=== PATIENT | female | born 1955 | race Caucasian/White ===

== ENCOUNTER 2025-08-17 10:17 | Emergency (ER) | payer MEDICARE, MEDICAID ==
[~2025-08-17] VITALS: Ht 162.6 cm; Wt 75.0 kg
[2025-08-17 10:25] VITALS: O2SAT 99
[2025-08-17] MEDS: ACETAMINOPHEN 500MG TABLET PO ONE (12:29)
[2025-08-17] MEDS: LIDOCAINE HCL/EPINEPHRINE 1%-EPI 1:100,000 20ML VIAL INFIL ONE (12:29)
[2025-08-17] MEDS: TETANUS, DIPHTHERIA, PERTUSSIS VAC/PF 0.5ML (>10YR OLD) IM ONE (12:30)
[2025-08-17] MEDS: BACITRACIN ZINC OINT UDPKT TOP ONE (13:28)
[2025-08-17 13:32] VITALS: BP 150/77; PULSE 90; RESP 16; TEMP 36.7; O2SAT 99
== END 2025-08-17 13:31 | disposition home or self-care (01) ==
LOC: EDSEX 10:17 → ER 10:17
DX: S01.01XA Laceration without foreign body of scalp, initial encounter (principal); E11.9 Type 2 diabetes mellitus without complications; I10 Essential (primary) hypertension; Z79.899 Other long term (current) drug therapy; W01.10XA Fall on same level from slipping, tripping and stumbling with subsequent striking against unspecified object, initial encounter; Y93.89 Activity, other specified; Y92.89 Other specified places as the place of occurrence of the external cause; Y99.8 Other external cause status
CPT/HCPCS: 99285; 70450; 73090; 70486; 72125; 90715; 12002; 90471; J2004